=== PATIENT | female | born 1990 | race Caucasian/White ===

== ENCOUNTER 2019-05-14 16:11 | Emergency (ER) | payer SELFPAY ==
[~2019-05-14] VITALS: Ht 172.7 cm; Wt 77.6 kg
[2019-05-14 16:28] VITALS: Ht 172.7 cm; Wt 77.6 kg
[2019-05-14 19:01] VITALS: BP 125/78
== END 2019-05-14 19:01 | disposition home or self-care (01) ==
LOC: ED 16:11
DX: J11.1 Influenza due to unidentified influenza virus with other respiratory manifestations (principal); R11.2 Nausea with vomiting, unspecified
CPT/HCPCS: 87804; Q0162